=== PATIENT | male | born 1955 | race Caucasian/White ===

== ENCOUNTER 2016-07-11 19:37 | Emergency (ER) | payer MEDICARE | END 2016-07-11 20:45 | LOC: ER 19:37 | DX: L50.0 Allergic urticaria (principal); S40.261A Insect bite (nonvenomous) of right shoulder, initial encounter; W57.XXXA Bitten or stung by nonvenomous insect and other nonvenomous arthropods, initial encounter; Z87.19 Personal history of other diseases of the digestive system; J44.9 Chronic obstructive pulmonary disease, unspecified; Z91.041 Radiographic dye allergy status | CPT/HCPCS: 99282 ==

== ENCOUNTER 2016-07-20 17:33 | Emergency (ER) | payer MEDICARE | END 2016-07-20 18:48 | disposition home or self-care (01) | LOC: ER 17:33 | DX: S13.9XXA Sprain of joints and ligaments of unspecified parts of neck, initial encounter (principal); X58.XXXA Exposure to other specified factors, initial encounter; G89.29 Other chronic pain; M54.2 Cervicalgia; M50.30 Other cervical disc degeneration, unspecified cervical region | CPT/HCPCS: 72125; 96372; 99283-25 ==

== ENCOUNTER 2016-09-15 17:10 | Emergency (ER) | payer MEDICARE | END 2016-09-15 20:25 | disposition home or self-care (01) | LOC: ER 17:10 | DX: M54.5 Low back pain (principal); G89.29 Other chronic pain; I10 Essential (primary) hypertension; Z79.899 Other long term (current) drug therapy; Z91.041 Radiographic dye allergy status | CPT/HCPCS: 96372; 99282-25 ==